=== PATIENT | female | born 1975 | race Two or more races ===

== ENCOUNTER 2022-02-26 12:32 | Inpatient (IN) | payer OTHER ==
[~2022-02-26] VITALS: Ht 157.5 cm; Wt 63.0 kg
== END 2022-03-06 22:17 | disposition home or self-care (01) | DRG 520 ==
LOC: O/R 03-05 05:20 → SURH 03-05 10:15 → SURG 03-05 13:21
PROVIDERS: ADMIT Student in an Organized Health Care Education/Training Program; ATTEND Student in an Organized Health Care Education/Training Program
PROC: 01NB0ZZ Release Lumbar Nerve, Open Approach (ICD-10-PCS; 2022-03-05)
PROC: 01NR0ZZ Release Sacral Nerve, Open Approach (ICD-10-PCS; 2022-03-05)
PROC: 0ST20ZZ Resection of Lumbar Vertebral Disc, Open Approach (ICD-10-PCS; 2022-03-05)
PROC: 0ST40ZZ Resection of Lumbosacral Disc, Open Approach (ICD-10-PCS; 2022-03-05)
PROC: 00NY0ZZ Release Lumbar Spinal Cord, Open Approach (ICD-10-PCS; principal; 2022-03-05 10:15)
DX: M48.062 Spinal stenosis, lumbar region with neurogenic claudication (principal); M51.16 Intervertebral disc disorders with radiculopathy, lumbar region; M51.36 Other intervertebral disc degeneration, lumbar region